=== PATIENT | female | born 1950 ===

== ENCOUNTER 2017-09-24 11:09 | Emergency (ER) | payer OTHER ==
[~2017-09-24] VITALS: Ht 162.6 cm; Wt 90.7 kg
[~2017-09-24 11:09] MED LIST: ASA81 MG; CIPRO500 MG PO; CORGARD40 MG; COZAAR100 MG; PYRIDIUM200 MG PO; TRAMADOL HCL-AP1 TAB PO
== END 2017-09-24 19:07 | disposition home or self-care (01) ==
LOC: ER 11:09
DX: J20.9 Acute bronchitis, unspecified (principal)

== ENCOUNTER 2017-09-27 15:38 | Inpatient (IN) | payer OTHER ==
[~2017-09-27] VITALS: Ht 160 cm; Wt 86.2 kg
== END 2017-10-01 13:16 | disposition home or self-care (01) | DRG 191 ==
LOC: SEC-K 15:38 → MEDI 15:38
PROC: 3E0F7GC Introduction of Other Therapeutic Substance into Respiratory Tract, Via Natural or Artificial Opening (ICD-10-PCS; principal; 2017-09-27)
DX: J44.1 Chronic obstructive pulmonary disease with (acute) exacerbation (principal); N39.0 Urinary tract infection, site not specified; J44.0 Chronic obstructive pulmonary disease with (acute) lower respiratory infection; J20.9 Acute bronchitis, unspecified

== ENCOUNTER 2018-01-08 10:21 | Outpatient (CLI) | payer OTHER | END 2018-01-08 10:34 | disposition home or self-care (01) | LOC: SONOGRAMA 10:21 | DX: N95.0 Postmenopausal bleeding (principal) ==

== ENCOUNTER 2019-02-04 14:05 | Outpatient (CLI) | payer OTHER | END 2019-02-04 14:07 | disposition home or self-care (01) | LOC: RAD 14:05 | DX: J44.9 Chronic obstructive pulmonary disease, unspecified (principal); M19.90 Unspecified osteoarthritis, unspecified site ==

== ENCOUNTER 2019-09-21 16:59 | Emergency (ER) | payer OTHER ==
[~2019-09-21] VITALS: Ht 157.5 cm; Wt 95.3 kg
[2019-09-21] MEDS ORDERED: XARELTO20 MG (17:10)
[2019-09-21] MEDS ORDERED: FOLIC ACID20 MG (17:11)
[2019-09-21] MEDS ORDERED: SPIRONOLACTONE10 GM (17:11)
[2019-09-21] MEDS ORDERED: PROTONIX20 MG (17:11)
== END 2019-09-21 20:43 | disposition home or self-care (01) ==
LOC: ER 16:59
DX: J45.998 Other asthma (principal)

== ENCOUNTER 2020-12-14 14:51 | Outpatient (CLI) | payer OTHER ==
[~2020-12-14 14:51] MED LIST changes: +FOLIC ACID20 MG; +PROTONIX20 MG; +SPIRONOLACTONE10 GM; +XARELTO20 MG
== END 2020-12-14 15:20 | disposition home or self-care (01) ==
LOC: OFIC 805 14:51
PROVIDERS: ATTEND Otolaryngology Otology & Neurotology
DX: G44.89 Other headache syndrome (principal); R09.81 Nasal congestion; J34.89 Other specified disorders of nose and nasal sinuses

== ENCOUNTER 2022-09-27 19:38 | Emergency (ER) | payer OTHER ==
[~2022-09-27] VITALS: Ht 160 cm; Wt 99.8 kg
[2022-09-27] MEDS ORDERED: METHYLPREDNISOLO4 M1 PO (20:04)
[2022-09-27] MEDS ORDERED: UCERIS9 MG PO (20:05)
[2022-09-27] MEDS ORDERED: XOPENEX0.63 MG/3 IH (20:05)
== END 2022-09-28 03:46 | disposition home or self-care (01) ==
LOC: ER 19:38
DX: J45.909 Unspecified asthma, uncomplicated (principal); Z95.0 Presence of cardiac pacemaker; I10 Essential (primary) hypertension; I11.0 Hypertensive heart disease with heart failure; Z87.09 Personal history of other diseases of the respiratory system; Z20.822 Contact with and (suspected) exposure to COVID-19